=== PATIENT | female | born 2000 | race Hispanic/Latino ===

== ENCOUNTER 2020-04-20 12:45 | Inpatient (IN) | payer MEDICAID ==
[~2020-04-20] VITALS: Ht 157.5 cm; Wt 79.4 kg
[~2020-04-20 12:45] MED LIST: PREN1TAB89 PO; RANI-655 PO
[2020-04-20] MEDS ORDERED: MEPERIDINE-PF 50 MG/ML SYG IVP PRN (19:15)
[2020-04-20] MEDS ORDERED: ROPIVACAINE 0.2% 100ML VIAL 100 ML EP SCH (19:15)
[2020-04-20] MEDS ORDERED: NALOXONE HCL 0.4 MG/1 ML ML IV PRN (19:15)
[2020-04-20] MEDS ORDERED: OXYTOCIN-LR 20 UNITS/1000 ML 1,000 ML IV SCH (19:15)
[2020-04-20] MEDS ORDERED: EPHEDRINE SULFATE 50 MG/ML AMPULE IVP PRN (19:15)
[2020-04-20] MEDS ORDERED: PROMETHAZINE HCL 25 MG/ML 1ML AMPULE IM PRN (19:15)
[2020-04-20] MEDS ORDERED: LACTATED RINGERS 500 ML 500 ML IV PRN (19:15)
[2020-04-20 19:25] LABS: HEMATOCRIT 30.4 % (36-48); MEAN CORPUSCULAR HEMOGLOBIN 23.1 pg (27.0-33.0); MEAN CORPUSCULAR HGB CONC 30.3 g/dL (32.0-36.0); MEAN CORPUSCULAR VOLUME 76.2 fL (80-100); PLATELET COUNT (AUTO) 250 K/uL (130-400); RED BLOOD CELL COUNT(AUTO) 3.99 MIL/uL (4.00-5.50); RED CELL DISTRIBUTION WIDTH 15.7 % (11.0-15.5); WHITE BLOOD COUNT (AUTO) 10.4 K/uL (4.8-10.8)
[2020-04-20 19:28] LABS: APPEARANCE,URINE Cloudy (CLEAR); BILIRUBIN,URINE Negative (NEGATIVE); COLOR,URINE Yellow (YELLOW); GLUCOSE, URINE (UA) Negative (NEGATIVE); KETONES,URINE Trace mg/dL (NEGATIVE); LEUKOCYTE ESTERASE ,URINE Large (NEGATIVE); NITRATE,URINE Negative (NEGATIVE); OCCULT BLOOD,URINE Negative (NEGATIVE); PH,URINE 6.5 (5.0-8.0); PROTEIN,URINE Negative (NEGATIVE)
[2020-04-20 19:41] LABS: BACTERIA,URINE Few /HPF (None Seen); RBC,URINE 0-1 /HPF (0-1); SQUAMOUS EPITHELIAL CELL,UR Moderate /HPF (0-2)
[2020-04-20] MEDS: LACTATED RINGERS 1000ML 1,000 ML IV PRN (19:47)
[2020-04-20] MEDS ORDERED: DINOPROSTONE 10 MG VAGINAL SUPP VG SCH (20:30)
[2020-04-21] MEDS: LACTATED RINGERS 1000ML 1,000 ML IV PRN (05:00)
[2020-04-21] MEDS ORDERED: OXYTOCIN 10 USP UNITS/ML 20 UNIT in LACTATED RINGERS 1000ML 1,000 ML IV SCH ×2 (05:00→07:00)
[2020-04-21 07:22] LABS: RAPID PLASMA REAGIN NONREACTIVE (NONREACTIVE)
[2020-04-21] MEDS ORDERED: LIDOCAINE HCL 1% 20 ML VIAL INJ SCH (12:15)
[2020-04-21] MEDS ORDERED: MISOPROSTOL 200 MCG TABLET VG PRN (12:15)
[2020-04-21] MEDS ORDERED: METHYLERGONOVINE MALEATE 0.2 MG/1 ML ML IM PRN (12:40)
[2020-04-21] MEDS ORDERED: LANOLIN 30GM OINTMENT TP PRN (13:15)
[2020-04-21] MEDS ORDERED: ACETAMINOPHEN 325 MG TAB PO PRN (13:15)
[2020-04-21] MEDS ORDERED: OXYTOCIN-LR 20 UNITS/1000 ML 1,000 ML IV SCH (13:15)
[2020-04-21] MEDS ORDERED: ACETAMINOPHEN-CODEINE 300/30MG TAB PO PRN (13:15)
[2020-04-21] MEDS ORDERED: WITCH HAZEL 1 PAD TP PRN (13:15)
[2020-04-21] MEDS ORDERED: BENZOCAINE/LANOLIN/ALOE VERA 60 ML AEROSOL TP PRN (13:15)
[2020-04-21] MEDS ORDERED: OXYTOCIN 10 USP UNITS/ML ONE (13:34)
[2020-04-21] MEDS ORDERED: LACTATED RINGERS 1000ML IV SCH (13:45)
[2020-04-21 18:05] LABS: HEMATOCRIT 25.9 % (36-48)
--- NOTE | 2020-04-21 19:45 | NUR ---
Report received from Andrew Son RN ; Patient received from L&D via wheelchair accompanied by Veda Landry, adapted physical education aide & Andrew Son RN with IV fluid of LR with 40 units regulated at 125 ml/hour. Patient & Mom oriented to the room, call light given. Plan of care discussed with patient. They verbalizes understanding.
[2020-04-21 20:03] VITALS: BP 98/67
[2020-04-21] MEDS: DOCUSATE SODIUM 100 MG CAP PO SCH (21:10)
[2020-04-21 23:29] VITALS: BP 94/55
[2020-04-22 03:52] VITALS: BP 103/54
[2020-04-22] MEDS: IBUPROFEN 600 MG TABLET PO PRN ×2 (03:53→12:07)
[2020-04-22 06:56] LABS: HEMATOCRIT 23.5 % (36-48); MEAN CORPUSCULAR HEMOGLOBIN 23.1 pg (27.0-33.0); MEAN CORPUSCULAR HGB CONC 30.6 g/dL (32.0-36.0); MEAN CORPUSCULAR VOLUME 75.3 fL (80-100); RED BLOOD CELL COUNT(AUTO) 3.12 MIL/uL (4.00-5.50); RED CELL DISTRIBUTION WIDTH 15.7 % (11.0-15.5); WHITE BLOOD COUNT (AUTO) 11.5 K/uL (4.8-10.8)
[2020-04-22 07:23] VITALS: BP 103/64
[2020-04-22] MEDS: DOCUSATE SODIUM 100 MG CAP PO SCH (08:44)
[2020-04-22 11:15] VITALS: BP 112/67
--- NOTE | 2020-04-22 13:10 | NUR ---
DISCHARGE PT LEFT UNIT VIA WHEELCHAIR, WITH BABY IN ARMS, ACCOMPANIED BY SIGNIFICANT OTHER. DENIED PAIN AND HAD NO COMPLAINTS. BABY STRAPPED IN CAR SEAT. PT AND BABY TRANSPORTED BY PERSONAL VEHICLE.
[2020-04-23 05:08] LABS: HEPATITIS Bs ANTIGEN SCREEN P Negative (Negative)
== END 2020-04-22 13:10 | disposition home or self-care (01) | DRG 560 ==
LOC: LDH 17:03 → WSH 04-21 19:45
PROVIDERS: ADMIT Obstetrics & Gynecology; ATTEND Obstetrics & Gynecology
PROC: 3E0R3BZ Introduction of Anesthetic Agent into Spinal Canal, Percutaneous Approach (ICD-10-PCS; principal; 2020-04-21)
PROC: 10E0XZZ Delivery of Products of Conception, External Approach (ICD-10-PCS; 2020-04-21)
PROC: 00HU33Z Insertion of Infusion Device into Spinal Canal, Percutaneous Approach (ICD-10-PCS; 2020-04-21)
PROC: 3E033VJ Introduction of Other Hormone into Peripheral Vein, Percutaneous Approach (ICD-10-PCS; 2020-04-21)
DX: O62.2 Other uterine inertia (principal); Z37.0 Single live birth; Z20.828 Contact with and (suspected) exposure to other viral communicable diseases; Z3A.39 39 weeks gestation of pregnancy
CPT/HCPCS: 36415; 81001; 85014; 85018; 85027; 86592; 86701; 86850; 86900; 86901; 87088; 87340; 87390; A4314; A4351; G0378; J2210; J2590; J2795; J7120; U0003